=== PATIENT | female | born 2000 | race Two or more races ===

== ENCOUNTER 2024-05-06 08:28 | Emergency (ER) | payer OTHER ==
[~2024-05-06] VITALS: Ht 167.6 cm; Wt 77.1 kg
[~2024-05-06 08:28] MED LIST: PRENATAL CAPLE1 EAC1 PO
[2024-05-06 09:38] LABS: HEMATOCRIT 34.3 % (36.0-45.00); HEMOGLOBIN 11.9 g/dL (12.0-15.00); MEAN CELL VOLUME 84.7 fL (80.00-100.00); MEAN CORPUSCULAR HEMOGLOBIN 29.4 pg (27.00-32.0); MEAN CORPUSCULAR HGB CONC 34.7 g/dl (32.0-36.0); PLATELET COUNT 211 K/uL (150-450); RED BLOOD COUNT 4.04 M/uL (4.00-6.00); RED CELL DISTRIBUTION WIDTH 13.7 % (11.5-14.5)
[2024-05-06 10:15] LABS: PH,URINE 7.5 (5.0-8.0); URINE APPEARANCE Clear; URINE BILIRRUBIN Negative (NEGATIVE); URINE BLOOD Trace; URINE COLOR Yellow; URINE GLUCOSE Negative (NEGATIVE); URINE KETONE 15 (NEGATIVE); URINE LEUKOCYTE Negative; URINE NITRATE Negative; URINE PROTEIN Negative (NEGATIVE); URINE UROBILINOGEN 0.2 E.U./dl
[2024-05-06 10:19] LABS: URINE BACTERIA 70.5 uL (0.0-1933); URINE RBC 3.8 uL (0.0-20.8); URINE WBC 4.6 uL (0.0-23.2)
== END 2024-05-06 12:03 | disposition home or self-care (01) ==
LOC: ER 08:29
PROVIDERS: General Practice
DX: O20.9 Hemorrhage in early pregnancy, unspecified (principal); Z3A.16 16 weeks gestation of pregnancy

== ENCOUNTER 2024-06-10 15:39 | Outpatient (CLI) | payer OTHER | END 2024-06-10 15:40 | disposition home or self-care (01) | LOC: PRENATAL 15:39 | PROVIDERS: ATTEND Obstetrics & Gynecology Maternal & Fetal Medicine | DX: O35.3XX0 Maternal care for (suspected) damage to fetus from viral disease in mother, not applicable or unspecified (principal); O44.00 Complete placenta previa NOS or without hemorrhage, unspecified trimester; Z3A.20 20 weeks gestation of pregnancy ==

== ENCOUNTER → 2024-09-01 15:24 | Outpatient (CLI) | payer OTHER | END | disposition home or self-care (01) | LOC: PRENATAL 15:24 | PROVIDERS: ATTEND Obstetrics & Gynecology Maternal & Fetal Medicine | DX: O26.849 Uterine size-date discrepancy, unspecified trimester (principal); O36.8199 Decreased fetal movements, unspecified trimester, other fetus; O24.419 Gestational diabetes mellitus in pregnancy, unspecified control; Z3A.32 32 weeks gestation of pregnancy ==

== ENCOUNTER → 2024-09-29 11:13 | Outpatient (CLI) | payer OTHER | END | disposition home or self-care (01) | LOC: PRENATAL 11:13 | PROVIDERS: ATTEND Obstetrics & Gynecology Maternal & Fetal Medicine | DX: O26.849 Uterine size-date discrepancy, unspecified trimester (principal); O36.8199 Decreased fetal movements, unspecified trimester, other fetus; O24.419 Gestational diabetes mellitus in pregnancy, unspecified control; Z3A.35 35 weeks gestation of pregnancy ==

== ENCOUNTER 2024-10-13 05:33 | Outpatient (CLI) | payer OTHER ==
[~2024-10-13] VITALS: Ht 167.6 cm; Wt 84.4 kg
[2024-10-13 05:30] VITALS: BP 114/72
[2024-10-13] MEDS ORDERED: FAMOTIDINE/PF 20 MG/2 ML VIAL IV PUSH ONE (05:45)
[2024-10-13] MEDS ORDERED: RINGERS SOLUTION,LACTATED 1,000 ML IV SCH (05:45)
[2024-10-13 06:09] VITALS: BP 97/58; O2SAT 99
[2024-10-13 06:20] LABS: URINE APPEARANCE Clear; URINE BILIRRUBIN Negative (NEGATIVE); URINE BLOOD Negative; URINE COLOR Dark Yellow; URINE GLUCOSE Negative (NEGATIVE); URINE LEUKOCYTE Negative; URINE NITRATE Negative; URINE PROTEIN 30 (NEGATIVE)
[2024-10-13 06:25] LABS: HEMATOCRIT 33.5 % (36.0-45.00); HEMOGLOBIN 11.7 g/dL (12.0-15.00); MEAN CELL VOLUME 83.2 fL (80.00-100.00); MEAN CORPUSCULAR HEMOGLOBIN 29.1 pg (27.00-32.0); PLATELET COUNT 223 K/uL (150-450); RED BLOOD COUNT 4.02 M/uL (4.00-6.00); RED CELL DISTRIBUTION WIDTH 15.3 % (11.5-14.5)
[2024-10-13 06:49] LABS: URINE EPITHELIAL CELLS 51.4 uL (0.0-38.8); URINE RBC 12.9 uL (0.0-20.8); URINE WBC 9.9 uL (0.0-23.2)
[2024-10-13 07:01] LABS: ALBUMIN 2.9 gm/dL (3.4-5.0); BILIRUBIN TOTAL 0.61 mg/dL (0.3-1.2); CALCIUM 8.3 mg/dL (8.5-10.1); CREATININE SERUM 0.64 mg/dL (0.55-1.02); GFR 114.99; GLOBULINA 3.3 G/DL (2.4-3.5); POTASSIUM 3.9 mEq/L (3.5-5.1); TOTAL PROTEIN 6.2 gm/dL (6.4-8.2)
[2024-10-13 07:12] LABS: URINE CAST 1.32 uL (0.0-1.40); URINE KETONE 80 (NEGATIVE)
[2024-10-13 11:21] VITALS: BP 93/56
[2024-10-13] MEDS ORDERED: FAMOTIDINE/PF 20 MG/2 ML VIAL IV PUSH SCH (11:45)
[2024-10-13 13:42] VITALS: BP 98/56
== END 2024-10-13 13:43 | disposition home or self-care (01) ==
LOC: OBS/DEL 05:33
PROVIDERS: ATTEND Obstetrics & Gynecology
DX: O26.893 Other specified pregnancy related conditions, third trimester (principal); R11.10 Vomiting, unspecified; E86.0 Dehydration

== ENCOUNTER 2024-10-19 09:44 | Inpatient (IN) | payer OTHER ==
[~2024-10-19] VITALS: Ht 167.6 cm; Wt 84.4 kg
[2024-10-19 10:06] VITALS: BP 112/70
[2024-10-19] MEDS ORDERED: OXYTOCIN 20 UNITS/500ML RL PIGGYBAG IV SCH (10:30)
[2024-10-19] MEDS ORDERED: RINGERS SOLUTION,LACTATED 1,000 ML IV SCH (11:00)
[2024-10-19 11:15] LABS: HEMOGLOBIN 10.6 g/dL (12.0-15.00); MEAN CELL VOLUME 85.1 fL (80.00-100.00); MEAN CORPUSCULAR HGB CONC 34.1 g/dl (32.0-36.0); PLATELET COUNT 218 K/uL (150-450); RED BLOOD COUNT 3.64 M/uL (4.00-6.00); RED CELL DISTRIBUTION WIDTH 15.2 % (11.5-14.5)
[2024-10-19 11:30] VITALS: BP 109/70
[2024-10-19 11:34] LABS: INR < 0.93; PARTIAL THROMBOPLASTIN TIME 25.1 SECONDS (22.0-34.0); PROTHROMBIN TIME 10.1 SECONDS (9.0-11.5)
[2024-10-19 11:48] LABS: URINE BACTERIA 271.5 uL (0.0-1933); URINE EPITHELIAL CELLS 20.2 uL (0.0-38.8); URINE RBC 6.6 uL (0.0-20.8); URINE WBC 9.1 uL (0.0-23.2)
[2024-10-19 11:53] LABS: URINE APPEARANCE Clear; URINE BILIRRUBIN Negative (NEGATIVE); URINE BLOOD Negative; URINE COLOR Yellow; URINE KETONE Negative (NEGATIVE); URINE LEUKOCYTE Negative; URINE NITRATE Negative; URINE PROTEIN Negative (NEGATIVE)
[2024-10-19 11:55] LABS: URINE GLUCOSE 100 MG/DL (NEGATIVE)
[2024-10-19] MEDS ORDERED: PROMETHAZINE HCL 25 MG/ML AMPUL ONE (14:32)
[2024-10-19 14:46] VITALS: BP 110/83
[2024-10-19] MEDS ORDERED: MEPERIDINE HCL/PF 25 MG/ML VIAL IV STA (14:47)
[2024-10-19] MEDS ORDERED: PROMETHAZINE HCL 25 MG/ML AMPUL IV STA (14:48)
[2024-10-19 15:36] VITALS: BP 145/82
[2024-10-19] MEDS ORDERED: CHLORHEXIDINE GLUCONATE 120 ML BOTTLE TOP ONE (15:53)
[2024-10-19] MEDS ORDERED: OXYTOCIN 20 UNITS/1000ML RL PIGGYBAG IV ONE (15:53)
[2024-10-19] MEDS ORDERED: ERYTHROMYCIN BASE OPHT 1GM EACH TUBE OP ONE ×2 (15:53→16:20)
[2024-10-19] MEDS ORDERED: LIDOCAINE HCL 1% 10ML VIAL ONE (15:54)
[2024-10-19 16:20] VITALS: BP 122/72
[2024-10-19] MEDS ORDERED: CHLORHEXIDINE GLUCONATE 120 ML BOTTLE TOP SCH (17:00)
[2024-10-19] MEDS ORDERED: OXYTOCIN 1,000 ML IV SCH (17:00)
[2024-10-19] MEDS ORDERED: ACETAMINOPHEN 500 MG GEL..CAP PO PRN (17:00)
[2024-10-19] MEDS ORDERED: LIDOCAINE HCL 1% 10ML VIAL IJ ONE (17:15)
[2024-10-19 18:08] VITALS: BP 127/77
[2024-10-19 19:40] LABS: HEMATOCRIT 32.8 % (36.0-45.00); HEMOGLOBIN 11.4 g/dL (12.0-15.00); MEAN CELL VOLUME 83.1 fL (80.00-100.00); MEAN CORPUSCULAR HGB CONC 34.9 g/dl (32.0-36.0); PLATELET COUNT 234 K/uL (150-450); RED BLOOD COUNT 3.94 M/uL (4.00-6.00); RED CELL DISTRIBUTION WIDTH 15.4 % (11.5-14.5)
[2024-10-20 00:25] VITALS: BP 127/77
[2024-10-20 05:04] VITALS: BP 96/61
[2024-10-20 08:16] VITALS: BP 106/66
[2024-10-20] MEDS ORDERED: PNV,CALCIUM 72/IRON/FOLIC ACID 1 TAB TABLET PO SCH (09:00)
[2024-10-20 16:17] VITALS: BP 134/73
[2024-10-21] VITALS: BP 118/72
[2024-10-21 08:31] VITALS: BP 114/74
== END 2024-10-21 18:31 | disposition home or self-care (01) | DRG 807 ==
LOC: LDR 09:44 → OB/GYN 16:17
PROVIDERS: ADMIT Obstetrics & Gynecology; ATTEND Obstetrics & Gynecology
PROC: 10E0XZZ Delivery of Products of Conception, External Approach (ICD-10-PCS; principal; 2024-10-19)
PROC: 0UQG7ZZ Repair Vagina, Via Natural or Artificial Opening (ICD-10-PCS; 2024-10-19)
PROC: 4A1HXCZ Monitoring of Products of Conception, Cardiac Rate, External Approach (ICD-10-PCS; 2024-10-19)
DX: O71.4 Obstetric high vaginal laceration alone (principal); Z37.0 Single live birth; Z3A.39 39 weeks gestation of pregnancy